=== PATIENT | female | born 1995 | race Caucasian/White ===

== ENCOUNTER 2018-05-12 13:21 | Emergency (ER) | payer MEDICAID ==
[~2018-05-12] VITALS: Ht 162.6 cm; Wt 52.2 kg
[2018-05-12] MEDS ORDERED: ACYCLOVIR200 MG/51 ORAL (13:31)
[2018-05-12] MEDS ORDERED: Albuterol ud Inhalation HHN ONE (14:15)
[2018-05-12] MEDS ORDERED: Ipratropium 0.02% Inh Soln 2.5ml UD HHN ONE (14:15)
--- NOTE | 2018-05-12 14:24 | NUR ---
ED Nurse Note: PT WALKED IN TO ER TODAY FROM HOME. AOX4. PT C/O CHILLS, RUNNY NOSE, COUGH AND FEVER X 2 DAYS AGO. PT STATES SHE WOULD ALSO LIKE A REFILL FOR ACYCLOVIR. PT HAS HX OF HIV. LUNG SOUNDS CLEAR IN ALL LOBES. NO SIGNS OF RESPIRATORY DISTRESS OR RETRACTIONS NOTED.
[2018-05-12 14:25] VITALS: BP 112/64
--- NOTE | 2018-05-12 14:30 | NUR ---
ED Nurse Note: RT AT BEDSIDE.
--- NOTE | 2018-05-12 14:45 | Emergency Room Report ---
History of Present Illness General Chief Complaint: Flu Like Symptoms Source: Patient Present Illness HPI 23-year-old female presents ED for evaluation. Complaining of cough, congestion , chills, runny nose for the last 2 days. Temp 100.4. Denies sore throat or body aches. Did not receive flu shot this year. Cough is productive with yellowish phlegm. States that prescribed an inhaler previously but does not know how to use it. States cough is worse at night. Denies sick contacts or recent travel. No other aggravating relieving factors. Denies any other associated symptoms Allergies: Coded Allergies: ACETAMINOPHEN (Verified Allergy, Unknown, 05/12/18) FENTANYL (Verified Allergy, Unknown, 05/12/18) OXYCODONE (Verified Allergy, Unknown, 05/12/18) Patient History Past Medical History: other - herpes Past Surgical History: none Pertinent Family History: none Social History: Denies: smoking, alcohol use, drug use Last Menstrual Period: CURRENTLY ON HER PERIOD Now: No Immunizations: UTD Reviewed Nursing Documentation: PMH: Agreed; PSxH: Agreed Review of Systems All Other Systems: negative except mentioned in HPI Physical Exam Vital Signs Date Time Temp Pulse Resp B/P (MAP) Pulse Ox O2 Delivery O2 Flow Rate FiO2 05/12/18 13:26 100.4 98 15 109/63 97 Room Air 05/12/18 14:30 21 Sp02 EP Interpretation: reviewed, normal General Appearance: no apparent distress, alert, GCS 15, non-toxic Head: normocephalic, atraumatic Eyes: bilateral eye normal inspection, bilateral eye PERRL ENT: hearing grossly normal, normal pharynx, no angioedema, normal voice Neck: full range of motion, supple/symm/no masses Respiratory: chest non-tender, lungs clear, normal breath sounds, speaking full sentences Cardiovascular #1: regular rate, rhythm, no edema Cardiovascular #2: 2+ carotid (R), 2+ carotid (L), 2+ radial (R), 2+ radial (L) , 2+ dorsalis pedis (R), 2+ dorsalis pedis (L) Gastrointestinal: normal bowel sounds, non tender, soft, non-distended, no guarding, no rebound Rectal: deferred Genitourinary: normal inspection, no CVA tenderness Musculoskeletal: back normal, gait/station normal, normal range of motion, non- tender Neurologic: alert, oriented x3, responsive, motor strength/tone normal, sensory intact, speech normal Psychiatric: judgement/insight normal, memory normal, mood/affect normal, no suicidal/homicidal ideation Reflexes: 3+ bicep (R), 3+ bicep (L), 3+ tricep (R), 3+ tricep (L), 3+ knee (R) , 3+ knee (L) Skin: normal color, no rash, warm/dry, well hydrated Lymphatic: no adenopathy Medical Decision Making Diagnostic Impression: Primary Impression: Influenza-like symptoms ER Course Hospital Course 23-year-old F presents to ED complaining of fever + chills + cough Differential diagnoses include: URI, pharyngitis, otitis media, influenza Clinical course Patient placed on stretcher. After initial history physical exam reveals a young female in no acute distress. Bilateral TM unremarkable, no pharyngeal erythema. reduced breath sounds. No CVA tenderness. I ordered breathing treatment, Motrin, chest x-ray Chest x-ray shows no focal consolidation Symptoms improved after breathing treatment. Discussed findings with patient. We'll treat clinically for influenza. We'll prescribe Tamiflu Patient given education by respiratory therapists as to proper use of inhaler at home. Patient is on suppression dose of acyclovir. We'll prescribe short course refill but suggests that she follows up with her clinic as to whether acyclovir is the best choice medication long-term We will also provide PMD referrals. Safe for discharge Diagnosis - influenza-like symptoms Stable and discharged home with prescriptions for tamiflu, promethazine, spacer. drink plenty of fluids. Instructed to followup with PMD. Return to ED if symptoms recur or worsen Chest X-Ray Diagnostic Results Chest X-Ray Diagnostic Results : Chest X-Ray Ordered: Yes # of Views/Limited/Complete: 1 View Indication: Shortness of Breath EP Interpretation: Yes Interpretation: no consolidation, no effusion, no pneumothorax, no acute cardiopulmonary disease Impression: No acute disease Electronically Signed by: Electronically signed by Lennox Roa MD Last Vital Signs Date Time Temp Pulse Resp B/P (MAP) Pulse Ox O2 Delivery O2 Flow Rate FiO2 05/12/18 14:31 100 19 100 Room Air 21 05/12/18 14:25 100.1 112/64 Status: improved Disposition: HOME, SELF-CARE Condition: Stable Scripts Inhaler, Assist Devices (Breatherite Spacer-Adult Mask) 1 Each Spacer EACH MC, #1 Prov: Lennox Roa MD 05/12/18 Acyclovir* (ACYCLOVIR*) 400 Mg Tablet 400 MG ORAL DAILY for 10 Days, TAB Prov: Lennox Roa MD 05/12/18 Oseltamivir Phosphate (Tamiflu) 75 Mg Capsule 75 MG ORAL TWICE A DAY for 5 Days, CAP Prov: Lennox Roa MD 05/12/18 D-Methorphan Hb/Prometh Hcl* (PROMETHAZINE-DM SYRUP*) 118 Ml Syrup 5 ML ORAL Q6H PRN for For Cough, #118 ML 0 Refills Prov: Lennox Roa MD 05/12/18 Lennox Roa MD May 12, 2018 14:45
[2018-05-12] MEDS ORDERED: ACYCLOVIR400 MG ORAL (15:54)
[2018-05-12] MEDS ORDERED: TAMIFLU75 MG ORAL (15:54)
[2018-05-12] MEDS ORDERED: PROMETHAZINE-D118 ML ORAL (15:54)
[2018-05-12] MEDS ORDERED: BREATHERITE SP1 EAC4 MC (15:54)
[2018-05-12 16:00] VITALS: BP 108/62
--- NOTE | 2018-05-12 16:00 | NUR ---
ED Nurse Note: PT SITTING PEACEFULLY IN BED IN NAD. AOX4. PRESCRIPTIONS AND DISCHARGE PAPERWORK EXPLAINED TO PT. PT VERBALIZES UNDERSTANDING AND ALL QUESTIONS ANSWERED. PRESCRIPTIONS AND DISCHARGE PAPERWORK GIVEN TO PT AND ID WRISTBAND REMOVED. PT WALKED OUT OF ER WITH STEADY GAIT AND ALL BELONGINGS.
--- NOTE | 2018-05-12 16:30 | Diagnostic Imaging Report ---
Indication: Cough Technique: One view of the chest Comparison: none Findings: Lungs and pleural spaces are clear. Heart size is normal Impression: No acute process
== END 2018-05-12 16:00 | disposition home or self-care (01) ==
LOC: EMR 13:59
DX: J11.1 Influenza due to unidentified influenza virus with other respiratory manifestations (principal); Z88.6 Allergy status to analgesic agent; R06.02 Shortness of breath
CPT/HCPCS: 71045; 94640; 94664; 99284; J7512

== ENCOUNTER 2018-05-28 19:39 | Emergency (ER) | payer MEDICAID ==
[~2018-05-28] VITALS: Ht 162.6 cm; Wt 49.9 kg
[~2018-05-28 19:39] MED LIST: ACYCLOVIR200 MG/51 ORAL; ACYCLOVIR400 MG ORAL; BREATHERITE SP1 EAC4 MC; PROMETHAZINE-D118 ML ORAL; TAMIFLU75 MG ORAL
[2018-05-28 19:53] VITALS: BP 113/62
--- NOTE | 2018-05-28 19:53 | NUR ---
ED Nurse Note: Pt arrived ED from home, c/o Flu like symptums for 3 months with coughing and left side of chest pain. Pt is A/O X 4. VSS.
[2018-05-28] MEDS ORDERED: CLARITIN-D 241 EACH PO (20:39)
[2018-05-28] MEDS ORDERED: AMOXICILLIN500 MG ORAL (20:39)
[2018-05-28] MEDS ORDERED: PROMETHAZINE-D118 ML ORAL (20:39)
[2018-05-28 20:43] VITALS: BP 113/62
--- NOTE | 2018-05-28 20:43 | NUR ---
ER DISCHARGE NOTE: Patient is cleared to be discharged per Dr. Roa. Pt is aox4 on room air with stable vital signs. Pt was given dc and prescription instructions, pt was able to verbalize understanding Pt's ID band removed. Pt is able to ambulate with steady gait and took all belongings.
--- NOTE | 2018-05-28 21:47 | Diagnostic Imaging Report ---
EXAM: XR Chest, 1 View CLINICAL HISTORY: COUGH TECHNIQUE: Frontal view of the chest. COMPARISON: 05/12/18 FINDINGS: Lungs: Large lung volumes. No evidence for focal infiltrate. Pleural space: Mild pleural thickening at the lung apices. No pneumothorax. Heart: Unremarkable. No cardiomegaly. Mediastinum: Unremarkable. Bones/joints: Unremarkable. IMPRESSION: No plain film evidence for acute infiltrate.
--- NOTE | 2018-05-29 14:05 | Emergency Room Report ---
History of Present Illness General Chief Complaint: Upper Respiratory Illness Source: Patient Present Illness HPI 23-year-old female presents ED for evaluation of cough. States she's had this cough persistently for the last 3 months. Cough is dry. Worsen night. States she's had bronchitis in the past however symptoms have not resolved despite using inhaler and cough medications. Denies fevers or chills. Denies sick contacts or recent travel. States she does smoke marijuana. No other aggravating relieving factors. Denies any other associated symptoms Allergies: Coded Allergies: ACETAMINOPHEN (Verified Allergy, Unknown, 05/12/18) FENTANYL (Verified Allergy, Unknown, 05/12/18) OXYCODONE (Verified Allergy, Unknown, 05/12/18) Patient History Past Medical History: none Past Surgical History: none Pertinent Family History: none Social History: Reports: smoking, drug use; Denies: alcohol use Last Menstrual Period: 05/13/18 Now: No : 1 Para: 0 Immunizations: UTD Reviewed Nursing Documentation: PMH: Agreed; PSxH: Agreed Nursing Documentation-PMH Past Medical History: No Stated History Review of Systems All Other Systems: negative except mentioned in HPI Physical Exam Vital Signs Date Time Temp Pulse Resp B/P (MAP) Pulse Ox O2 Delivery O2 Flow Rate FiO2 05/28/18 19:40 99.1 85 18 112/66 96 Room Air Sp02 EP Interpretation: reviewed, normal General Appearance: no apparent distress, alert, GCS 15, non-toxic Head: normocephalic, atraumatic Eyes: bilateral eye normal inspection, bilateral eye PERRL ENT: hearing grossly normal, normal pharynx, no angioedema, normal voice Neck: full range of motion, supple/symm/no masses Respiratory: chest non-tender, lungs clear, normal breath sounds, speaking full sentences Cardiovascular #1: regular rate, rhythm, no edema Cardiovascular #2: 2+ carotid (R), 2+ carotid (L), 2+ radial (R), 2+ radial (L) , 2+ dorsalis pedis (R), 2+ dorsalis pedis (L) Gastrointestinal: normal bowel sounds, non tender, soft, non-distended, no guarding, no rebound Rectal: deferred Genitourinary: normal inspection, no CVA tenderness Musculoskeletal: back normal, gait/station normal, normal range of motion, non- tender Neurologic: alert, oriented x3, responsive, motor strength/tone normal, sensory intact, speech normal Psychiatric: judgement/insight normal, memory normal, mood/affect normal, no suicidal/homicidal ideation Reflexes: 3+ bicep (R), 3+ bicep (L), 3+ tricep (R), 3+ tricep (L), 3+ knee (R) , 3+ knee (L) Skin: normal color, no rash, warm/dry, well hydrated Lymphatic: no adenopathy Medical Decision Making Diagnostic Impression: Primary Impression: Atypical pneumonia ER Course Hospital Course 23 yo F presents to ED c/o cough Differential diagnoses include: URI, pharyngitis, otitis media, asthma Clinical course Patient placed on stretcher. After initial history, physical exam reveals a female in no acute distress. Bilateral TM unremarkable. No pharyngeal erythema. No tonsillar exudates. No lymphadenopathy. lungs clear. abdomen soft. Patient was seen here earlier this month. I saw patient. Diagnosed with flulike symptoms and prescribed acyclovir year and cough medication and inhaler. Symptoms improved somewhat then resumed I ordered chest x-ray here. Shows no evidence of consolidation or other acute process Discussed findings with patient here. Given persistent symptoms along with smoking history. We'll treat as atypical pneumonia prescribe antibiotics. States she has an inhaler. states she has a PMD Diagnosis - atypical pneumonia Stable and discharged home with Rx amoxicillin, claritin, promethazine/DM. Instructed to followup with PMD. Return to ED if symptoms recur or worsen Chest X-Ray Diagnostic Results Chest X-Ray Diagnostic Results : Chest X-Ray Ordered: Yes # of Views/Limited/Complete: 1 View Indication: Other - cough EP Interpretation: Yes Interpretation: no consolidation, no effusion, no pneumothorax, no acute cardiopulmonary disease Impression: No acute disease Electronically Signed by: Electronically signed by Lennox Roa MD Last Vital Signs Date Time Temp Pulse Resp B/P (MAP) Pulse Ox O2 Delivery O2 Flow Rate FiO2 05/28/18 20:43 99.1 82 18 113/62 96 Room Air Status: improved Disposition: HOME, SELF-CARE Condition: Stable Scripts Loratadine/Pseudoephedrine (CLARITIN-D 24 HOUR TABLET) 1 Each Tab.er.24h 1 TAB PO DAILY, #30 TAB Prov: Lennox Rao MD 05/28/18 D-Methorphan Hb/Prometh Hcl* (PROMETHAZINE-DM SYRUP*) 118 Ml Syrup 5 ML ORAL Q6H PRN for For Cough, #118 ML 0 Refills Prov: Lennox Roa MD 05/28/18 Amoxicillin* (AMOXIL*) 500 Mg Capsule 500 MG ORAL THREE TIMES A DAY, #21 CAP Prov: Lennox Roa MD 05/28/18 Referrals: [facility],REFERRING (PCP) Patient Instructions: Community-Acquired Pneumonia, Adult, [id number] Lennox Roa MD May 29, 2018 14:05
== END 2018-05-28 20:45 | disposition home or self-care (01) ==
LOC: EMR 19:58
DX: J18.9 Pneumonia, unspecified organism (principal); Z88.6 Allergy status to analgesic agent; Z88.5 Allergy status to narcotic agent
CPT/HCPCS: 71045; 81025; 99283